=== PATIENT | female | born 1950 | race Caucasian/White ===

== ENCOUNTER 2023-08-25 21:49 | Inpatient (IN) | payer MEDICARE, OTHER, SELFPAY ==
[2023-08-25] VITALS (7 sets, daily range): BP systolic 139–174; BP diastolic 78–103; PULSE 107–140; RESP 9–20; TEMP 36.1; O2SAT 98–100; BMI 27.4
--- NOTE | 2023-08-25 22:10 | DI.RAD.S_ITS ---
PROCEDURE: XR CHEST 1V INDICATIONS: a fib rvr TECHNIQUE: One view of the chest was acquired. COMPARISON: None. FINDINGS: Surgical changes and devices: None. Lungs and pleura: Lungs are clear. No pleural effusions or pneumothorax. Mediastinum: Mediastinal contours appear normal. Heart size is normal. Bones and chest wall: No suspicious bony lesions. Overlying soft tissues appear unremarkable. IMPRESSION: No acute pulmonary process. Dictated by: Gisella Baum M.D. on 08/25/2023 at 23:02 Approved by: Gisella Baum M.D. on 08/25/2023 at 23:02
--- NOTE | 2023-08-25 22:25 | ED.ARRPALP ---
HPI - Arrhythmia/Palpitations General Chief Complaint: Arrhythmia/Palpitations Stated Complaint: irregular hr, dizzy, lightheaded Time Seen by Provider: 08/25/23 21:53 Source: patient Mode of arrival: Ambulatory History of Present Illness HPI narrative: 73-year-old female with PMH HTN, HLD, one functioning kidney presents by private vehicle from home for irregular heart rate, lightheadedness, palpitations. Patient states that she had a similar episode 1 week prior, however this resolved on its own and she did not seek any medical care for this episode. Today the episode lasted longer than the prior episode lasted, so she decided to present for evaluation. Patient was found to be in atrial fibrillation with rapid ventricular response, which would briefly go into multi 2nd pauses. Patient denies history of heart problems, use of blood thinners. She takes 50 mg atenolol b.i.d. Related Data Allergies Allergy/AdvReac Type Severity Reaction Status Date / Time No Known Drug Allergies Allergy Verified 08/25/23 23:00 Review of Systems Review of Systems Narrative: Negative except as noted above Patient History Social History Smoking Status: Never smoker Smoking Status: Never smoker alcohol intake frequency: holidays/special occasions only Substance Use Type: does not use Exam Initial Vital Signs Initial Vital Signs: Vital Signs Blood Pressure 174/103 H 08/25/23 22:01 Const: Awake, alert, no acute distress, nontoxic appearing Eyes: PERRL, EOMI, conjunctiva normal ENT: Atraumatic, dentition normal, mucous membranes moist Cardiac: Tachycardia, irregularly irregular RESP: unlabored, clear bilaterally, no wheezing GI: Atraumatic, soft, nontender, nondistended, no rebound, no guarding MSK: Atraumatic, full range of motion, pulses equal Skin: Warm, Dry, intact, no rashes Neuro: AO x3, CN II-XII grossly intact, moves all extremities Psych: affect normal, mood normal, not suicidal, not homicidal Course Orders Ordered: ED Orders 08/25/23 22:10 Chest [XR chest 1V] Stat UA Complete [Urinalysis and Microscopic] Stat Urine Drug Screen, Rapid Stat 08/25/23 22:15 BNP [NT-proBNP (BNP-Adult 18+)] Stat CBC Auto Diff [Complete Blood Count AUTO DIFF] Stat CMP [Comprehensive Metabolic Panel] Stat Magnesium Stat PT [Prothrombin Time INR] Stat TSH [Thyroid Stimulating Hormone] Stat Troponin & CK Cardiac Panel Stat Amiodarone HCl/Dextrose (Nexterone) 360 mg in 200 mls @ 33.333 mls/hr IV NOW ONE; Protocol Stop: 08/26/23 04:50 Discontinued Medications Apixaban (Apixaban 5 Mg Tablet) 5 mg PO NOW ONE Stop: 08/25/23 22:51 Last Admin: 08/25/23 22:58 Dose: 5 mg Amiodarone HCl/Dextrose (Nexterone) 150 mg in 100 mls @ 600 mls/hr IV NOW ONE; Protocol Stop: 08/25/23 22:59 Last Admin: 08/25/23 23:00 Dose: 600 mls/hr Vital Signs Vital signs: Vital Signs - 8 hr 08/25/23 22:01 08/25/23 22:02 08/25/23 22:03 Temperature 97 F L Pulse Rate 126 H 133 H Respiratory Rate 20 Blood Pressure 174/103 H 174/103 H Pulse Oximetry 100 99 Oxygen Delivery Method Room Air Room Air 08/25/23 22:30 Temperature Pulse Rate 137 H Respiratory Rate 17 Blood Pressure Pulse Oximetry 99 Oxygen Delivery Method Room Air MDM - Arrhythmia/Palpitations Differential Diagnosis Differential diagnosis: Likely palpitations, artial fibrillation, artial flutter and supraventricular tachycardia Lab Data 08/25/23 22:15 08/25/23 22:15 Labs: Lab Results 08/25/23 Range/Units 22:15 WBC 10.1 (4.5-11.0) X10^3/uL RBC 4.50 (4.0-5.2) X10^6/uL Hgb 14.6 (12.0-16.0) g/dL Hct 41.8 (36-46) % MCV 92.9 (80-100) fL MCH 32.5 (26-34) PG MCHC 35.0 (30-36) % RDW 13.7 (11.6-14.8) % Plt Count 297 (150-400) X10^3/uL Neut % (Auto) 64.1 (50-75) % Lymph % (Auto) 29.9 (25-40) % [place] % (Auto) 3.4 (3-14) % Eos % (Auto) 0.8 L (2-4) % Baso % (Auto) 1.8 (0-2) % Neut # (Auto) 6500 (6449-2475) /uL Lymph # (Auto) 3000 (6124-6702) /uL [place] # (Auto) 300 (0-900) /uL Eos # (Auto) 100 (0-450) /uL Baso # (Auto) 200 H (0-100) /uL PT 11.3 (9.4-12.5) SECONDS INR 1.0 (0.9-1.3) Sodium 139 (137-145) mmol/L Potassium 3.7 (3.4-5.1) mmol/L Chloride 105 (98-107) mmol/L Carbon Dioxide 25 (22-32) mmol/L BUN 31 H (7-17) mg/dL Creatinine 0.90 (0.52-1.04) mg/dL Estimated GFR > 60 (>60) mL/min BUN/Creatinine Ratio 34.4 H (6-22) Glucose 155 H (80-110) mg/dL Calcium 10.0 (8.4-10.2) mg/dL Magnesium 2.1 (1.6-2.3) mg/dL Total Bilirubin 0.6 (0.2-1.3) mg/dL AST 38 H (14-36) IU/L ALT 30 (<35) IU/L Alkaline Phosphatase 64 (38-126) U/L Total Creatine Kinase 118 (30-135) U/L Troponin I < 0.012 (0.01-0.034) ng/mL NT-Pro-B Natriuret Pep 762 H (<125) pg/mL Total Protein 8.0 (6.3-8.2) g/dL Albumin 4.4 (3.5-5.0) g/dL Globulin 3.6 (1.7-4.1) g/dL Albumin/Globulin Ratio 1.2 (1.0-2.8) TSH 1.53 (0.47-4.68) uIU/mL ECG Data Interpretation: Tachycardia, rate 137 beats per minute. Irregularly irregular, atrial fibrillation with RVR. Normal axis, no STEMI MDM Narrative Medical decision making narrative: Nontoxic appearing patient presenting for palpitations and irregular heartbeat. Found to be in atrial fibrillation with RVR. She does appear to go into 3-4 second long pauses, then resumes back into atrial fibrillation with RVR. Patient remains minimally symptomatic throughout these episodes, speaking normally to myself and nursing staff during these episodes with no change in mental status. Stat consult placed to cardiology Dr. Poole, who reviewed the EKGs of patient's atrial fibrillation as well as the pauses that were captured on telemetry. He states that these are likely conversion pauses. He also states that patient seems to be taking a large dose of atenolol. He recommends stopping atenolol, starting anticoagulation, loading with amiodarone, and admitting for telemetry and echocardiogram in the morning. I informed patient and her of cardiology recommendations, they are amenable to admission at this time. Laboratory work is reviewed. Patient's electrolytes, magnesium, TSH, troponin normal. Chest x-ray is negative for acute abnormalities. Patient has been given amiodarone bolus and is currently on amiodarone, heart rate is approximately 100-120 beats per minute, rate is gradually decreasing from presentation. Plan to admit for further treatment. Discharge Plan Departure Patient Disposition: Admitted as Observation Clinical Impression: Atrial fibrillation with RVR
[2023-08-25 22:29] LABS: Add Manual Diff / Slide Review NO; Basophils Absolute Auto 200 /uL (0-100); Basophils Percent Auto 1.8 % (0-2); Eosinophils Absolute Auto 100 /uL (0-450); Eosinophils Percent Auto 0.8 % (2-4); Hematocrit 41.8 % (36-46); Hemoglobin 14.6 g/dL (12.0-16.0); Lymphocytes Absolute Auto 3000 /uL (1100-4500); Lymphocytes Percent Auto 29.9 % (25-40); Mean Corpuscular Hemoglobin 32.5 PG (26-34); Mean Corpuscular Volume 92.9 fL (80-100); Monocytes Absolute Auto 300 /uL (0-900); Monocytes Percent Auto 3.4 % (3-14); Neutrophils Absolute Auto 6500 /uL (1500-7000); Neutrophils Percent Auto 64.1 % (50-75); Platelet Count 297 X10^3/uL (150-400); Red Cell Distribution Width 13.7 % (11.6-14.8); White Blood Cell Count 10.1 X10^3/uL (4.5-11.0)
--- NOTE | 2023-08-25 22:29 | PC.NURSE ---
Pt placed on defibrillator pads per Dr. Cedillo's request
[2023-08-25 22:38] LABS: Prothrombin Time 11.3 SECONDS (9.4-12.5)
[2023-08-25 22:43] LABS: Creatine Kinase 118 U/L (30-135); Magnesium 2.1 mg/dL (1.6-2.3)
[2023-08-25 22:44] LABS: Alanine Aminotransferase 30 IU/L (<35); Albumin 4.4 g/dL (3.5-5.0); Albumin Globulin Ratio 1.2 (1.0-2.8); Alkaline Phosphatase 64 U/L (38-126); Aspartate Aminotransferase 38 IU/L (14-36); BUN Creatinine Ratio 34.4 (6-22); Bilirubin Total 0.6 mg/dL (0.2-1.3); Blood Urea Nitrogen 31 mg/dL (7-17); Carbon Dioxide 25 mmol/L (22-32); Chloride 105 mmol/L (98-107); Estimated Glomerular Filt Rate > 60 mL/min (>60); Globulin 3.6 g/dL (1.7-4.1); Glucose 155 mg/dL (80-110); HEMOLYSIS 28 (0-50); Potassium 3.7 mmol/L (3.4-5.1); Sodium 139 mmol/L (137-145)
[2023-08-25 22:53] LABS: NT-proBNP (BNP-Adult 18+) 762 pg/mL (<125); Troponin I < 0.012 ng/mL (0.01-0.034)
[2023-08-25] MEDS: APIXABAN 5 MG TABLET PO (22:58)
[2023-08-25] MEDS: AMIODARONE 150 MG/100 ML PIGGYBACK 600 MG IV (23:00)
[2023-08-25] MEDS: AMIODARONE 360 MG/200 ML PIGGYBACK 33.33 MG IV (23:15)
[2023-08-25 23:18] LABS: Thyroid Stimulating Hormone 1.53 uIU/mL (0.47-4.68)
[2023-08-26] VITALS (13 sets, daily range): BP systolic 106–150; BP diastolic 60–91; PULSE 52–132; RESP 9–24; TEMP 36.1–36.6; O2SAT 95–100
--- NOTE | 2023-08-26 | DI.ECHO.S_ITS ---
Version: 1 Study ID: [id number] [place] [address] Name: ANTON BRAUN Study Date: 08/26/2023, 6: 23 AM : 1950 BP: 106 / 63 mmHg Gender: Female Height: 64 in Age: 73 Years Weight: 160 lb BSA: 1.78 mA? Ordering: LIDA AMES D.O Referring: LIDA AMES D.O Clinician: Sabine Gonzalez Reason For Study: ATRIAL FIBRILLATION WITH RVR History: Summary Statements 1) Normal left ventricular thickness, size, wall motion, and systolic function (EF 60-65%). 2) Normal right ventricular size and function. 3) No significant valvular abnormalities. 4) No prior Echo available for comparison. Procedure: A two-dimensional transthoracic echocardiogram with color flow and Doppler was performed. The study quality was technically adequate. There is no prior echocardiogram noted for this patient. The patient was in sinus bradycardia with heart rates between 57-62 bpm during the exam. Left Ventricle: The left ventricle is normal in size and wall thickness. The ejection fraction is estimated to be 60-65%. Left ventricular systolic function appears normal without focal wall motion abnormalities. Diastolic parameters suggest a relaxation abnormality of the left ventricle, consistent with probable normal filling pressures. Right Ventricle: The right ventricle is normal in size and function. Atria: The left atrial size is normal. Right atrial size is normal. There is no Doppler evidence for an interatrial shunt. Mitral Valve: The mitral valve is grossly normal. There is mild mitral regurgitation. Aortic Valve: The aortic valve opens well. There is no aortic valve stenosis. No aortic regurgitation is present. Tricuspid Valve: The tricuspid valve is normal in structure and function. There is mild tricuspid regurgitation. The right ventricular systolic pressure is estimated to be at least 23 mmHg based on an estimated right atrial pressure of 3 mm Hg. Pulmonic Valve: The pulmonic valve is not well visualized. There is no pulmonic valvular regurgitation. Great Vessels: The aortic root is normal size. The IVC is of normal diameter and collapses greater than 50% with a sniff. This suggests a low right atrial pressure of 3 mm Hg. Pericardium/ Pleura: There is no pericardial effusion. There is no pleural effusion. 2D and M-Mode Measurements and Calculations LVIDd: 4.1 cm LVOT diam: 2.06 cm LVIDs: 3.5 cm Ao root diam: 2.9 cm IVSd: 0.81 cm Ao Arch Diam (Prox Trans): 2.26 cm LVPWd: 0.70 cm LV ge. diameter/BSA (cm/m^2): 2.29 LV sys. diameter/BSA (cm/m^2): 1.96 RVD1 (basal): 3.0 cm RVD2 (mid): 2.9 cm TAPSE: 1.97 cm LA A4 area: 13.0 ios architect? IVC diam: 1.59 cm LA A2 area: 16.7 ios architect? RA area: 10.7 ios architect? LA length (vol): 4.9 cm RA long axis: 4.1 cm LA vol: 37.6 ml RA vol: 24.0 ml LA vol index: 21.1 ml/mA? RA : 13.5 ml/mA? Doppler Measurements and Calculations Ao V2 max: 164.3 cm/sec LVOT Max Reinier: 113.7 cm/sec Ao V2 mean: 113.4 cm/sec LV V1 max P.2 mmHg Ao V2 VTI: 38.4 cm LV V1 VTI: 28.3 cm Ao max P.8 mmHg SV(LVOT): 94.4 ml Ao mean P.6 mmHg MILTON(I,D): 2.46 ios architect? MILTON(V,D): 2.30 ios architect? MILTON indexed to BSA (cm^2/m^2): 1.38 sev ratio: 0.74 MV E max reinier: 86.0 cm/sec MV dec time: 0.21 sec MV A max reinier: 63.8 cm/sec MV E/A: 1.35 Med Peak E' Reinier: 6.8 cm/sec Lat Peak E' Reinier: 9.8 cm/sec E/e' average: 10.7 TR max reinier: 224.0 cm/sec PA mean P.10 mmHg TR max P.1 mmHg PA V2 max: 96.6 cm/sec Santy Watts Electronically signed by: Santy Watts 08/26/2023, 9: 00 AM
--- NOTE | 2023-08-26 00:08 | P.HP_ITS ---
History of Present Illness History of Present Illness Date Patient Seen: 08/26/23 Time Patient Seen: 00:08 Date of Onset of Symptoms: 08/25/23 Chief complaint: irregular hr, dizzy, lightheaded Narrative: States she had the feeling of fast heart rate palpitations, dizziness which was previous than other episodes of dizziness in previous years, and lightheadedness. Similar episode 1 week ago however it did not persist as long and thus she presented today. Dizziness is described during these episodes as feeling lightheaded and unstable. Previously dizzy episodes had been more consistent with Vertigo described as the room spinning. Notes she received the RSV vaccine a few weeks ago, Covid 06/2023 did not take Paxlovid due to only one functional kidney. Denies recent illness, edema, SOB, CP. Denies GI, symptoms. No known history of heart failure. On Atenolol for fast heart rate that was reconnized during and has been controlled for years. [facility] Medical History (Updated 08/26/23 @ 00:14 by Lizz Chiu DO) HLD (hyperlipidemia) HTN (hypertension) Social History Smoking Status: Never smoker Meds Home Medications and Allergies Home Medications Medication Instructions Recorded Confirmed Type aspirin 81 mg tablet,delayed 81 mg PO DAILY 08/26/23 08/26/23 History release atenolol 50 mg tablet 50 mg PO DAILY 08/26/23 08/26/23 History atorvastatin 20 mg tablet 20 mg PO DAILY 08/26/23 08/26/23 History cyclosporine 0.09 % eye drops in a 1 drp EYE-BOTH BID 08/26/23 08/26/23 History dropperette (Cequa) lisinopril 20 1 tab PO DAILY 08/26/23 08/26/23 History mg-hydrochlorothiazide 12.5 mg tablet loteprednol etabonate 0.2 % eye 1 drp EYE-BOTH BID 08/26/23 08/26/23 History drops,suspension (Alrex) omeprazole 08/26/23 History Allergies Allergy/AdvReac Type Severity Reaction Status Date / Time No Known Drug Allergies Allergy Verified 08/25/23 23:00 Review of Systems Constitutional Constitutional: Reports as per HPI and Reports system reviewed and no additional complaints, except as documented Exam Vital Signs (past 8 hours): - 08/25/23 22:01 08/25/23 22:02 08/25/23 22:03 Temperature 97 F L Pulse Rate 126 H 133 H Respiratory Rate 20 Blood Pressure 174/103 H 174/103 H Pulse Oximetry 100 99 Oxygen Delivery Method Room Air Room Air 08/25/23 22:30 08/25/23 23:00 08/25/23 23:30 Temperature Pulse Rate 137 H 140 H 107 H Respiratory Rate 17 13 17 Blood Pressure Pulse Oximetry 99 99 98 Oxygen Delivery Method Room Air 08/25/23 23:37 08/25/23 23:37 Temperature Pulse Rate 112 H Respiratory Rate 9 L Blood Pressure 139/78 Pulse Oximetry 98 Oxygen Delivery Method Oxygen Delivery Method Room Air Const General: healthy appearing and comfortable HENMT Head: normocephalic Eyes General: appearance normal, both eyes and all related structures Neck Neck: normal visual inspection Chest Chest: normal inspection of the chest Resp Effort & Inspection: normal respiratory effort and able to speak in complete sentences Other: Per nursing staff CTA Cardio Other: Per nursing staff irreg irreg tachycardic GI Inspection: non-distended Skin Rashes: no rashes Neuro General: patient alert and patient oriented x3 Extrem General: No edema Objective Imaging Chest x-ray: My impression: HEIDY Radiologist's impression: HEIDY Labs 08/25/23 22:15 08/25/23 22:15 Labs: Laboratory Results - last 24 hr 08/25/23 22:15 WBC 10.1 RBC 4.50 Hgb 14.6 Hct 41.8 MCV 92.9 MCH 32.5 MCHC 35.0 RDW 13.7 Plt Count 297 Neut % (Auto) 64.1 Lymph % (Auto) 29.9 [place] % (Auto) 3.4 Eos % (Auto) 0.8 L Baso % (Auto) 1.8 Neut # (Auto) 6500 Lymph # (Auto) 3000 [place] # (Auto) 300 Eos # (Auto) 100 Baso # (Auto) 200 H PT 11.3 INR 1.0 Sodium 139 Potassium 3.7 Chloride 105 Carbon Dioxide 25 BUN 31 H Creatinine 0.90 Estimated GFR > 60 BUN/Creatinine Ratio 34.4 H Glucose 155 H Calcium 10.0 Magnesium 2.1 Total Bilirubin 0.6 AST 38 H ALT 30 Alkaline Phosphatase 64 Total Creatine Kinase 118 Troponin I < 0.012 NT-Pro-B Natriuret Pep 762 H Total Protein 8.0 Albumin 4.4 Globulin 3.6 Albumin/Globulin Ratio 1.2 TSH 1.53 Assessment & Plan Assessment and plan (1) Atrial fibrillation with RVR: Status: Acute (2) HTN (hypertension): Qualifiers: Hypertension type: primary hypertension Qualified Code(s): I10 - Essential (primary) hypertension Status: Acute (3) Hyperglycemia: Status: Acute Plan AFib RVR, new onset - Admit to medical barron with telemetry monitoring - BNP 762 likely due to RVR, monitor fluid status - troponin negative, no chest pain - electrolytes wnl,monitor - CXR NAP - EP Dr. Poole consulted, recommended initiation of anticoaulation and Eliquis started in ED, discontinuation of Atenolol, initiation of Amiodarone gtt started in ED, ECHO in am - ECHO pending - Amiodarone gtt in process with improvement of RVR from 140 to 100-110 - Continue Eliquis for anticoagulatino and monitor HTN - discontinue Atenolol as above, monitor for indication to initiate or escalate home antihypertensives - hold home Lisinopril HCTZ at this time, reassess in am Hyperglycemia - suspect reactive, judicious monitoring Elevated transaminase, AST - trace elevation, likely reactive, follow up outpatient
[2023-08-26 01:39] LABS: Appearance Urine UA CLEAR; Bilirubin Urine UA NEGATIVE (NEGATIVE); Color Urine UA YELLOW; Glucose Urine UA NEGATIVE (Negative); Ketones Urine UA NEGATIVE (NEGATIVE); Leukocyte Esterase Urine UA NEGATIVE (NEGATIVE); Nitrite Urine UA NEGATIVE (Negative); Occult Blood Urine UA 2+ (Negative); Protein Urine UA NEGATIVE (Negative); Urobilinogen Urine UA 0.2 E.U./dL (0.2); pH Urine UA 5.5 (4.5-8.0)
[2023-08-26 01:46] LABS: UR Morphine/Opiate cutoff 300 Negative (Negative); Ur Creatinine Normal (Normal); Ur Specific Gravity Normal (Normal); Urine Amphetamines Negative (Negative); Urine Barbiturates Negative (Negative); Urine Benzodiazepines Negative (Negative); Urine Cocaine Negative (Negative); Urine MDMA Negative (Negative); Urine Methadone Negative (Negative); Urine Methamphetamines Negative (Negative); Urine Oxycodone Negative (Negative); Urine Phencyclidine Negative (Negative); Urine Tetrahydrocannabinol Negative (Negative); Urine Tricyclic Antidepressant Negative (Negative); Urine pH Normal (Normal)
[2023-08-26 01:54] LABS: Bacteria Urine Occasional (0-1); Culture Indicated Urine Cult Not Indicated; RBC Urine 1-5/HPF (0-5/HPF); Squamous Epithelial Cell Urine 1-5 /HPF (0-5/HPF); WBC Urine None Seen (0-5/HPF)
[2023-08-26] MEDS: AMIODARONE 200 MG TABLET PO ×2 (03:26→09:11)
[2023-08-26 03:53] LABS: BUN Creatinine Ratio 31.6 (6-22); Blood Urea Nitrogen 25 mg/dL (7-17); Calcium 9.5 mg/dL (8.4-10.2); Carbon Dioxide 24 mmol/L (22-32); Chloride 107 mmol/L (98-107); Estimated Glomerular Filt Rate > 60 mL/min (>60); Glucose 105 mg/dL (80-110); HEMOLYSIS < 15 (0-50); Potassium 3.8 mmol/L (3.4-5.1); Sodium 137 mmol/L (137-145)
[2023-08-26 06:25] LABS: MRSA (Nasal) PCR Not Detected (Not Detect)
--- NOTE | 2023-08-26 07:22 | PM.HP.1 ---
History of Present Illness History of Present Illness Date Patient Seen: 08/26/23 Chief complaint: irregular hr, dizzy, lightheaded Narrative: From overnight provider: States she had the feeling of fast heart rate palpitations, dizziness which was previous than other episodes of dizziness in previous years, and lightheadedness. Similar episode 1 week ago however it did not persist as long and thus she presented today. Dizziness is described during these episodes as feeling lightheaded and unstable. Previously dizzy episodes had been more consistent with Vertigo described as the room spinning. Notes she received the RSV vaccine a few weeks ago, Covid 06/2023 did not take Paxlovid due to only one functional kidney. Denies recent illness, edema, SOB, CP. Denies GI, symptoms. No known history of heart failure. On Atenolol for fast heart rate that was reconnized during and has been controlled for years. COUNT INCLUDES THE [facility] Medical History (Updated 08/26/23 @ 00:14 by Lizz Chiu DO) HLD (hyperlipidemia) HTN (hypertension) Social History household members: spouse Smoking Status: Never smoker Meds Home Medications and Allergies Home Medications Medication Instructions Recorded Confirmed Type amiodarone 200 mg tablet See Rx Instructions .Route 08/26/23 Rx .COMPLEX #60 tabs apixaban 5 mg tablet (Eliquis) 5 mg PO BID #60 tabs 08/26/23 Rx atorvastatin 20 mg tablet 20 mg PO DAILY 08/26/23 08/26/23 History cyclosporine 0.09 % eye drops in a 1 drp EYE-BOTH BID 08/26/23 08/26/23 History dropperette (Cequa) lisinopril 20 1 tab PO DAILY 08/26/23 08/26/23 History mg-hydrochlorothiazide 12.5 mg tablet loteprednol etabonate 0.2 % eye 1 drp EYE-BOTH BID 08/26/23 08/26/23 History drops,suspension (Alrex) omeprazole 08/26/23 History Allergies Allergy/AdvReac Type Severity Reaction Status Date / Time No Known Drug Allergies Allergy Verified 08/25/23 23:00 Review of Systems Constitutional Constitutional: Reports as per HPI and Reports system reviewed and no additional complaints, except as documented Exam Vital Signs (past 8 hours): - 08/25/23 23:30 08/25/23 23:37 08/25/23 23:37 Temperature Pulse Rate 107 H 112 H Respiratory Rate 17 9 L Blood Pressure 139/78 Pulse Oximetry 98 98 Oxygen Delivery Method Oxygen Flow Rate 08/25/23 23:59 08/26/23 00:00 08/26/23 00:00 Temperature Pulse Rate 123 H Respiratory Rate 13 Blood Pressure 126/79 Pulse Oximetry 98 Oxygen Delivery Method Room Air Room Air Oxygen Flow Rate 08/26/23 00:30 08/26/23 00:30 08/26/23 00:39 Temperature Pulse Rate 122 H 122 H Respiratory Rate 13 17 Blood Pressure 141/76 H Pulse Oximetry 99 99 Oxygen Delivery Method Room Air Room Air Oxygen Flow Rate 08/26/23 00:39 08/26/23 01:23 08/26/23 01:30 Temperature 97.1 F L Pulse Rate 132 H 129 H Respiratory Rate 24 17 Blood Pressure 146/80 H 139/91 H Pulse Oximetry 100 99 Oxygen Delivery Method Oxygen Flow Rate 0 08/26/23 02:00 08/26/23 02:00 08/26/23 03:00 Temperature Pulse Rate 65 55 L Respiratory Rate 17 16 Blood Pressure 150/76 H 116/60 Pulse Oximetry 98 96 Oxygen Delivery Method Oxygen Flow Rate 0 0 08/26/23 04:00 08/26/23 04:00 08/26/23 05:00 Temperature 97.0 F L Pulse Rate 52 L 53 L Respiratory Rate 9 L 15 Blood Pressure 112/60 Pulse Oximetry 98 97 Oxygen Delivery Method Oxygen Flow Rate 0 08/26/23 05:00 08/26/23 06:00 08/26/23 06:00 Temperature Pulse Rate 53 L Respiratory Rate 16 Blood Pressure 117/60 106/63 Pulse Oximetry 95 Oxygen Delivery Method Oxygen Flow Rate 0 0 Oxygen Delivery Method Room Air Oxygen Flow Rate 0 Const General: healthy appearing and comfortable HENSC Head: normocephalic Eyes General: appearance normal, both eyes and all related structures Neck Neck: normal visual inspection Chest Chest: normal inspection of the chest Resp Effort & Inspection: normal respiratory effort and able to speak in complete sentences Other: Per nursing staff CTA Cardio Other: Per nursing staff irreg irreg tachycardic GI Inspection: non-distended Skin Rashes: no rashes Neuro General: patient alert and patient oriented x3 Extrem General: No edema Objective Labs 08/25/23 22:15 08/26/23 03:26 Labs: Laboratory Results - last 24 hr 08/25/23 08/26/23 08/26/23 22:15 01:14 01:34 WBC 10.1 RBC 4.50 Hgb 14.6 Hct 41.8 MCV 92.9 MCH 32.5 MCHC 35.0 RDW 13.7 Plt Count 297 Neut % (Auto) 64.1 Lymph % (Auto) 29.9 [place] % (Auto) 3.4 Eos % (Auto) 0.8 L Baso % (Auto) 1.8 Neut # (Auto) 6500 Lymph # (Auto) 3000 [place] # (Auto) 300 Eos # (Auto) 100 Baso # (Auto) 200 H PT 11.3 INR 1.0 Sodium 139 Potassium 3.7 Chloride 105 Carbon Dioxide 25 BUN 31 H Creatinine 0.90 Estimated GFR > 60 BUN/Creatinine Ratio 34.4 H Glucose 155 H Calcium 10.0 Magnesium 2.1 Total Bilirubin 0.6 AST 38 H ALT 30 Alkaline Phosphatase 64 Total Creatine Kinase 118 Troponin I < 0.012 NT-Pro-B Natriuret Pep 762 H Total Protein 8.0 Albumin 4.4 Globulin 3.6 Albumin/Globulin Ratio 1.2 TSH 1.53 Urine Color Urine Appearance Ur Specific [place] Urine Protein Urine Glucose (UA) Urine Ketones Urine Occult Blood Urine Nitrate Urine Bilirubin Urine Urobilinogen Ur Leukocyte Esterase Urine RBC Urine WBC Ur Squamous Epith Cells Urine Bacteria Ur Culture Indicated? Nasal Screen MRSA (PCR) Not detected U Opiates 300ng/mL cut Negative Ur Oxycodone Screen Negative Urine Methadone Screen Negative Ur Barbiturates Screen Negative U Tricyclic Antidepress Negative Ur Phencyclidine Scrn Negative Ur Amphetamines Screen Negative U Methamphetamines Scrn Negative Ur MDMA Scrn (Ecstasy) Negative U Benzodiazepines Scrn Negative Urine Cocaine Screen Negative U Marijuana (THC) Screen Negative Urine pH Normal Urine Specific [place] Normal Ur Creatinine Normal 08/26/23 08/26/23 01:36 03:26 WBC RBC Hgb Hct MCV MCH MCHC RDW Plt Count Neut % (Auto) Lymph % (Auto) [place] % (Auto) Eos % (Auto) Baso % (Auto) Neut # (Auto) Lymph # (Auto) [place] # (Auto) Eos # (Auto) Baso # (Auto) PT INR Sodium 137 Potassium 3.8 Chloride 107 Carbon Dioxide 24 BUN 25 H Creatinine 0.79 Estimated GFR > 60 BUN/Creatinine Ratio 31.6 H Glucose 105 Calcium 9.5 Magnesium 2.0 Total Bilirubin AST ALT Alkaline Phosphatase Total Creatine Kinase Troponin I NT-Pro-B Natriuret Pep Total Protein Albumin Globulin Albumin/Globulin Ratio TSH Urine Color Yellow Urine Appearance Clear Ur Specific [place] 1.010 Urine Protein Negative Urine Glucose (UA) Negative Urine Ketones Negative Urine Occult Blood 2+ H Urine Nitrate Negative Urine Bilirubin Negative Urine Urobilinogen 0.2 Ur Leukocyte Esterase Negative Urine RBC 1-5/hpf Urine WBC None seen Ur Squamous Epith Cells 1-5 /hpf Urine Bacteria Occasional (0-1) Ur Culture Indicated? Cult not indicated Nasal Screen MRSA (PCR) U Opiates 300ng/mL cut Ur Oxycodone Screen Urine Methadone Screen Ur Barbiturates Screen U Tricyclic Antidepress Ur Phencyclidine Scrn Ur Amphetamines Screen U Methamphetamines Scrn Ur MDMA Scrn (Ecstasy) U Benzodiazepines Scrn Urine Cocaine Screen U Marijuana (THC) Screen Urine pH 5.5 Urine Specific [place] Ur Creatinine Assessment & Plan Assessment & Plan narrative: AFib RVR, new onset - Admit to medical barron with telemetry monitoring - BNP 762 likely due to RVR, monitor fluid status - troponin negative, no chest pain - electrolytes wnl,monitor - CXR NAP - EP Dr. Poole consulted, recommended initiation of anticoaulation and Eliquis started in ED, discontinuation of Atenolol, initiation of Amiodarone gtt started in ED, ECHO in am - ECHO WNL with EF 60-65%, no valvular abnormalities and normal chamber sizes - Amiodarone gtt in process with improvement of RVR from 140 to 100-110 - converted to NSR on amio drip, transitioned to po amio 200mg BID for 2 weeks then 200mg daily - patient will get referral from PCP to see Dr. Poole, his office already aware and will schedule her once they receive the referral - Continue Eliquis 5mg BID HTN - discontinue Atenolol as above, monitor for indication to initiate or escalate home antihypertensives - hold home Lisinopril HCTZ at this time - restarted on discharge Hyperglycemia - suspect reactive, judicious monitoring Elevated transaminase, AST - trace elevation, likely reactive, follow up outpatient
[2023-08-26] MEDS: APIXABAN 5 MG TABLET PO (09:11)
[2023-08-26] MEDS: DOCUSATE 100 MG CAPSULE PO (09:11)
--- NOTE | 2023-08-26 12:08 | PM.DS.1 ---
History of Present Illness History of Present Illness Chief complaint: irregular hr, dizzy, lightheaded Narrative: From overnight provider: States she had the feeling of fast heart rate palpitations, dizziness which was previous than other episodes of dizziness in previous years, and lightheadedness. Similar episode 1 week ago however it did not persist as long and thus she presented today. Dizziness is described during these episodes as feeling lightheaded and unstable. Previously dizzy episodes had been more consistent with Vertigo described as the room spinning. Notes she received the RSV vaccine a few weeks ago, Covid 06/2023 did not take Paxlovid due to only one functional kidney. Denies recent illness, edema, SOB, CP. Denies GI, symptoms. No known history of heart failure. On Atenolol for fast heart rate that was reconnized during and has been controlled for years. Discharge Providers Provider Date of admission: 08/25/23 23:55 Discharge Date: 08/26/23 Discharge provider: Miguel Medrano DO Summary Hospital Course Discharge Diagnosis: AFib RVR, new onset - Admit to medical [facility] with telemetry monitoring - BNP 762 likely due to RVR, monitor fluid status - troponin negative, no chest pain - electrolytes wnl,monitor - CXR NAP - EP Dr. Poole consulted, recommended initiation of anticoaulation and Eliquis started in ED, discontinuation of Atenolol, initiation of Amiodarone gtt started in ED, ECHO in am - ECHO WNL with EF 60-65%, no valvular abnormalities and normal chamber sizes - Amiodarone gtt in process with improvement of RVR from 140 to 100-110 - converted to NSR on amio drip, transitioned to po amio 200mg BID for 2 weeks then 200mg daily - patient will get referral from PCP to see Dr. Poole, his office already aware and will schedule her once they receive the referral - Continue Eliquis 5mg BID HTN - discontinue Atenolol as above, monitor for indication to initiate or escalate home antihypertensives - hold home Lisinopril HCTZ at this time - restarted on discharge Hyperglycemia - suspect reactive, judicious monitoring Elevated transaminase, AST - trace elevation, likely reactive, follow up outpatient Hospital Course: Admitted for new-onset A-fib RVR. Converted overnight on amio drip then transitioned to po amio. Echo reassuring. Spoke with Dr. Zulema OLEA airport maintenance chief who will see patient in clinic and talk about a possible ablation. Placed on po amio and eliquis. Home aspirin stopped but lisinopril-HCTZ continued. Exam Vital Signs (past 8 hours): - 08/26/23 05:00 08/26/23 05:00 08/26/23 06:00 Temperature Pulse Rate 53 L 53 L Respiratory Rate 15 16 Blood Pressure 117/60 Pulse Oximetry 97 95 Oxygen Delivery Method Oxygen Flow Rate 0 08/26/23 06:00 08/26/23 07:00 08/26/23 07:00 Temperature Pulse Rate 64 Respiratory Rate 18 Blood Pressure 106/63 129/82 Pulse Oximetry 99 Oxygen Delivery Method Oxygen Flow Rate 0 08/26/23 07:00 08/26/23 08:00 08/26/23 08:00 Temperature 98 F Pulse Rate 56 L Respiratory Rate 15 Blood Pressure Pulse Oximetry 98 Oxygen Delivery Method Room Air Oxygen Flow Rate 08/26/23 08:00 08/26/23 09:00 Temperature Pulse Rate 58 L Respiratory Rate 21 Blood Pressure 120/60 Pulse Oximetry 100 Oxygen Delivery Method Oxygen Flow Rate Oxygen Delivery Method Room Air Oxygen Flow Rate 0 Const General: healthy appearing and comfortable [facility] Head: normocephalic Eyes General: appearance normal, both eyes and all related structures Neck Neck: normal visual inspection Chest Chest: normal inspection of the chest Resp Effort & Inspection: normal respiratory effort and able to speak in complete sentences Other: Per nursing staff CTA Cardio Other: Per nursing staff irreg irreg tachycardic GI Inspection: non-distended Skin Rashes: no rashes Neuro General: patient alert and patient oriented x3 Extrem General: No edema Objective Labs 08/25/23 22:15 08/26/23 03:26 Labs: Laboratory Results - last 24 hr 08/25/23 08/26/23 08/26/23 22:15 01:14 01:34 WBC 10.1 RBC 4.50 Hgb 14.6 Hct 41.8 MCV 92.9 MCH 32.5 MCHC 35.0 RDW 13.7 Plt Count 297 Neut % (Auto) 64.1 Lymph % (Auto) 29.9 Brooke % (Auto) 3.4 Eos % (Auto) 0.8 L Baso % (Auto) 1.8 Neut # (Auto) 6500 Lymph # (Auto) 3000 Brooke # (Auto) 300 Eos # (Auto) 100 Baso # (Auto) 200 H PT 11.3 INR 1.0 Sodium 139 Potassium 3.7 Chloride 105 Carbon Dioxide 25 BUN 31 H Creatinine 0.90 Estimated GFR > 60 BUN/Creatinine Ratio 34.4 H Glucose 155 H Calcium 10.0 Magnesium 2.1 Total Bilirubin 0.6 AST 38 H ALT 30 Alkaline Phosphatase 64 Total Creatine Kinase 118 Troponin I < 0.012 NT-Pro-B Natriuret Pep 762 H Total Protein 8.0 Albumin 4.4 Globulin 3.6 Albumin/Globulin Ratio 1.2 TSH 1.53 Urine Color Urine Appearance Ur Specific [place] Urine Protein Urine Glucose (UA) Urine Ketones Urine Occult Blood Urine Nitrate Urine Bilirubin Urine Urobilinogen Ur Leukocyte Esterase Urine RBC Urine WBC Ur Squamous Epith Cells Urine Bacteria Ur Culture Indicated? Nasal Screen MRSA (PCR) Not detected U Opiates 300ng/mL cut Negative Ur Oxycodone Screen Negative Urine Methadone Screen Negative Ur Barbiturates Screen Negative U Tricyclic Antidepress Negative Ur Phencyclidine Scrn Negative Ur Amphetamines Screen Negative U Methamphetamines Scrn Negative Ur MDMA Scrn (Ecstasy) Negative U Benzodiazepines Scrn Negative Urine Cocaine Screen Negative U Marijuana (THC) Screen Negative Urine pH Normal Urine Specific [place] Normal Ur Creatinine Normal 08/26/23 08/26/23 01:36 03:26 WBC RBC Hgb Hct MCV MCH MCHC RDW Plt Count Neut % (Auto) Lymph % (Auto) Brooke % (Auto) Eos % (Auto) Baso % (Auto) Neut # (Auto) Lymph # (Auto) Brooke # (Auto) Eos # (Auto) Baso # (Auto) PT INR Sodium 137 Potassium 3.8 Chloride 107 Carbon Dioxide 24 BUN 25 H Creatinine 0.79 Estimated GFR > 60 BUN/Creatinine Ratio 31.6 H Glucose 105 Calcium 9.5 Magnesium 2.0 Total Bilirubin AST ALT Alkaline Phosphatase Total Creatine Kinase Troponin I NT-Pro-B Natriuret Pep Total Protein Albumin Globulin Albumin/Globulin Ratio TSH Urine Color Yellow Urine Appearance Clear Ur Specific [place] 1.010 Urine Protein Negative Urine Glucose (UA) Negative Urine Ketones Negative Urine Occult Blood 2+ H Urine Nitrate Negative Urine Bilirubin Negative Urine Urobilinogen 0.2 Ur Leukocyte Esterase Negative Urine RBC 1-5/hpf Urine WBC None seen Ur Squamous Epith Cells 1-5 /hpf Urine Bacteria Occasional (0-1) Ur Culture Indicated? Cult not indicated Nasal Screen MRSA (PCR) U Opiates 300ng/mL cut Ur Oxycodone Screen Urine Methadone Screen Ur Barbiturates Screen U Tricyclic Antidepress Ur Phencyclidine Scrn Ur Amphetamines Screen U Methamphetamines Scrn Ur MDMA Scrn (Ecstasy) U Benzodiazepines Scrn Urine Cocaine Screen U Marijuana (THC) Screen Urine pH 5.5 Urine Specific [place] Ur Creatinine PFSH Medical History (Updated 08/26/23 @ 00:14 by Lizz Chiu DO) HLD (hyperlipidemia) HTN (hypertension) Social History household members: spouse Smoking Status: Never smoker Discharge Plan Discharge Plan Patient Disposition: Home Provider Discharge Comment: You were diagnosed with Atrial Fibrillation. You will now need to be on a heart rate controlling medication and a blood thinner to prevent strokes. You will see Dr. Poole in clinic once they have received a fax from your PCP with the referral. Please have the referral state schedule with Dr. Poole. If you go back in to A-fib again, you may take 400mg (2 tabs) of the amiodarone twice daily for 2 days then go back to the 200mg (1 tab) twice daily. Discharge orders & Medications Prescriptions: New amiodarone 200 mg Tablet See Rx Instructions .ROUTE .COMPLEX Qty: 60 0RF Rx Instructions: take 1 tab twice daily for 2 weeks, then take 1 tab once daily Eliquis 5 mg Tablet 5 mg PO BID Qty: 60 0RF Continued Alrex 0.2 % drops,suspension 1 drp EYE-BOTH BID lisinopril-hydrochlorothiazide 20-12.5 mg tablet 1 tab PO DAILY omeprazole 20 mg capsule atorvastatin 20 mg tablet 20 mg PO DAILY Cequa 0.09 % dropperette 1 drp EYE-BOTH BID Discontinued atenolol 50 mg tablet 50 mg PO DAILY aspirin 81 mg tablet,delayed release (DR/EC) 81 mg PO DAILY Follow up/Referrals: Renzo Poole MD [Physician] - (Please have your PCP fax a referral to [phone].) Visit Report/Discharge Packet Stand Alone Forms: Patient Portal/API, Stroke Signs & Symptoms Discharge Data Attending Provider: Lizz Chiu Admit Date/Time: 08/25/23 23:55
--- NOTE | 2023-08-26 15:11 | CM.DANOTE ---
Discharge Planning/Care Management CM Discharge Assessment Start: 08/26/23 15:09 Freq: Status: Discharge Protocol: Document 08/26/23 15:09 GIOVANNI (Rec: 08/26/23 15:11 GIOVANNI [id number]) Discharge Planning Assessment Assigned [employer] External ANASTACIA Guerrero DPOA/Assigned Designee Name Domo España, spouse Contact Information [phone] Advance Directives? No History Provided By Patient,Significant Other, Medical Record Prior Living Arrangements House Comment spends two weeks in [facility] and two weeks in [place]: [id number] [facility], [place] Household Members spouse Type of transporation used prior to Drives own vehicle admit Independent with ADL's Yes Is patient alert and oriented? Yes Barriers to Discharge No Comment Home w/sp today, close outpatient follow up recommended. No needs identified from this CM team. Discharge Plan Home Transportation Arrangement Spouse Referrals Initiated None needed
== END 2023-08-26 12:15 | disposition home or self-care (01) | DRG 310 ==
LOC: ED 23:38 → ICU 08-26 06:18 → AC 08-26 14:07
PROVIDERS: Admitting Provider Internal Medicine; Emergency Provider Emergency Medicine; Visit Provider Internal Medicine
DX: I48.91 Unspecified atrial fibrillation (principal); I10 Essential (primary) hypertension; R73.9 Hyperglycemia, unspecified; E78.5 Hyperlipidemia, unspecified
CPT/HCPCS: 36415; 71045; 80048; 80053; 80305; 81001; 82550; 83735; 83880; 84443; 84484; 85025; 85610; 87797; 93005; 93010; 93306; 96365; 96366; 99284; 99285; 99291; 99292; G0378; J0282